=== PATIENT | female | born 1940 | race African-American/Black ===

== ENCOUNTER 2017-08-11 18:23 | Observation (INO) | payer OTHER ==
[~2017-08-11] VITALS: Ht 165.1 cm; Wt 102.1 kg
[~2017-08-11 18:23] MED LIST: AMBIEN5 MG PO; ARICEPT5 MG PO; HYCODAN SYRUP5 ML PO; IRON; K-DUR20 MEQ PO; METFORMIN HCL500 MG PO; NEXIUM40 MG PO; NORVASC5 MG PO; PAXIL20 MG PO; PRAVASTATIN SOD40 MG PO; REGLAN5 MG PO; TRAMADOL HCL50 MG PO; WELLBUTRIN XL150 MG PO; ZETIA10 MG PO
[2017-08-11 18:58] LABS: BASOPHIL (%) 0.1 % (0-1); EOSINOPHIL (%) 0.6 % (0-5); HEMATOCRIT 39.7 % (36.0-46.0); HEMOGLOBIN 12.3 G/DL (11.9-15.5); IMMATURE GRANULOCYTE (%) 0.1 % (0.0-0.7); LYMPHOCYTE (%) 26.1 % (15-42); LYMPHOCYTE COUNT 1.8 K/uL (1.0-2.8); MCH 24.8 PG (29.0-34.0); MCV 80.2 FL (83-99); MONOCYTE (%) 6.4 % (3-12); MONOCYTE COUNT 0.4 K/uL (0-0.8); NEUTROPHIL (%) 66.7 % (45-76); NEUTROPHIL COUNT 4.6 K/uL (1.8-6.4); PLATELET COUNT 230 K/uL (156-360); RBC DIS.WIDTH-SD 49.2 % (39-53); RED BLOOD COUNT 4.95 M/uL (3.80-5.20); WHITE BLOOD COUNT 6.9 K/uL (4.1-10.2)
[2017-08-11 19:06] LABS: CHLORIDE 104 mEq/L (99-109); POTASSIUM 4.2 mEq/L (3.7-5.4); SODIUM 144 mEq/L (136-147)
[2017-08-11 19:07] LABS: GLUCOSE 111 mg/dL (70-99)
[2017-08-11 19:11] LABS: CREATININE 0.8 mg/dL (0.6-1.3); GFR ESTIMATE (CALCULATED) > 59 mL/min/
[2017-08-11 19:12] LABS: UREA NITROGEN (BUN) 9 mg/dL (9-23)
[2017-08-11 19:19] LABS: TROP-I INTERPRETATION NEGATIVE; TROPONIN-I < 0.01 ng/mL (0.0-0.30)
[2017-08-11] MEDS ORDERED: ZOLPIDEM TARTRA10 MG PO (20:42)
[2017-08-11] MEDS ORDERED: XIGDUO XR 5 MG1 EAC1 PO (20:43)
[2017-08-11] MEDS ORDERED: VIIBRYD40 MG PO (20:43)
[2017-08-11] MEDS ORDERED: TRAZODONE HCL50 MG PO (20:44)
[2017-08-11] MEDS ORDERED: LASIX40 MG PO (20:52)
[2017-08-11] MEDS ORDERED: VIBERZI75 MG PO (20:54)
[2017-08-11] MEDS ORDERED: GABAPENTIN300 MG PO (20:55)
[2017-08-11] MEDS ORDERED: LANTUS 3 M100 UNITS1 SC ×2 (20:57→20:58)
[2017-08-11] MEDS ORDERED: TRULICITY0.75 MG/0. SC (20:59)
[2017-08-11] MEDS ORDERED: CARVEDILOL3.125 MG PO (21:00)
[2017-08-12 02:24] LABS: TROP-I INTERPRETATION NEGATIVE; TROPONIN-I < 0.01 ng/mL (0.0-0.30)
[2017-08-12 03:49] LABS: HDL CHOLESTEROL 35 MG/DL (Desirable>=50); LDL CHOLESTEROL 85 mg/dL (Desirable<100); NON-HDL CHOLESTEROL 118 mg/dL (Desirable<160); TOTAL CHOLESTEROL 153 mg/dL (Desirable<200); TRIGLYCERIDES 165 MG/DL (Normal: <150)
[2017-08-12 04:03] VITALS: BP 169/76
[2017-08-12 08:27] LABS: TROP-I INTERPRETATION NEGATIVE; TROPONIN-I < 0.01 ng/mL (0.0-0.30)
[2017-08-12 08:50] VITALS: BP 188/82
[2017-08-12 12:33] VITALS: BP 184/84
[2017-08-12] MEDS ORDERED: AMLODIPINE BESYL5 MG PO ×2 (14:01→14:56)
[2017-08-12] MEDS ORDERED: LOSARTAN POTASS50 MG PO (14:01)
[2017-08-12 14:12] VITALS: BP 106/76
[2017-08-12] MEDS ORDERED: CARVEDILOL3.125 MG PO ×2 (14:45→15:13)
[2017-08-12] MEDS ORDERED: ASPIRIN81 M2 PO (14:45)
[2017-08-12] MEDS ORDERED: ATORVASTATIN CA20 MG PO (15:05)
[2017-08-12 15:39] VITALS: BP 138/63
[2017-08-13 12:51] LABS: HEMOGLOBIN A1c (GLYCOHEMOGLOB) 7.3 % (Below 5.7)
== END 2017-08-12 16:32 | disposition home or self-care (01) ==
LOC: EME 18:23 → EDOF 21:02 → ENRESERV 21:03 → 5WEST 22:59
PROVIDERS: Hospitalist; Physician Assistant
DX: R07.89 Other chest pain (principal); I10 Essential (primary) hypertension; E78.5 Hyperlipidemia, unspecified; E11.42 Type 2 diabetes mellitus with diabetic polyneuropathy; F17.210 Nicotine dependence, cigarettes, uncomplicated; J44.9 Chronic obstructive pulmonary disease, unspecified; Z90.710 Acquired absence of both cervix and uterus; Z79.4 Long term (current) use of insulin
CPT/HCPCS: 71046; 80048; 80061; 82948; 83036; 84484; 85025; 93005; G0378; J0360; J1644; J1815